=== PATIENT | male | born 1960 | race Caucasian/White ===

== ENCOUNTER 2017-05-27 20:13 | Emergency (ER) | payer BC ==
[2017-05-27] MEDS ORDERED: Lidocaine 1% with EPINEPHrine 1:100,000 20 ML MDV INFILT ONE (20:14)
--- NOTE | 2017-05-28 01:35 | ER ---
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 The knife slipped and caused a laceration to the palmar surface of his left wrist. This was on the radial side and the patient noted immediately a large amount of pulsatile bleeding. He applied direct pressure to the wound and came into the local emergency room. The bleeding seemed to have stopped by then, but there was some concern for possible radial artery injury based on his history, so he is transferred here for surgical evaluation. A bandage has been placed over the wrist, and during the time since shortly after his injury, there has been no further significant bleeding from the incision. I am seeing him now approximately 3 hours after the injury. The patient denies any numbness or tingling in his hand. He said the hand color is normal and does not feel cold to him. His past medical history shows that he is generally healthy. He does not have any known heart or vascular disease. He does have some arthritis and is anticipating knee replacement surgery. He has had some abdominal surgery but not had any upper extremity surgery in the past. He does not take blood thinners. PHYSICAL EXAMINATION: EXTREMITIES: Examination of the left wrist shows a 2 cm linear, slightly oblique laceration over the radial side of the palmar surface of the left wrist. Currently, there is no bleeding. There is no unusual swelling. Palpation of the wrist area reveals a strong radial pulse just proximal to the site of the laceration. I am not able to palpate a pulse distal to the laceration; however, with Doppler, strong arterial pulsation is noted both proximally and distally to the incision, and this is present even when the ulnar artery is compressed. Capillary refill in the fingers and thumb of his left hand is rapid and normal. Oxygen saturation taken on the finger of the left hand is the same and in fact slightly higher than that is taken on the finger of the uninjured hand. Discussion is carried out with the patient regarding management options. At this point, the radial artery does have a good pulse in it, there is no active bleeding, and since it has been several hours since the injury, I have recommended simple closure of the wound rather than exploration, which may open an cause injury to the radial artery. The rationale for this is discussed with the patient, and he concurred and agreed with this plan. The site is cleansed and anesthetized with Xylocaine with epinephrine. 4-0 Prolene sutures are placed to close the laceration. Again, no unusual bleeding was noted during this process or at any time while he was in the emergency room. Antibiotic ointment and a mild compression dressing are placed. The patient is also fitted with a Futuro splint and instructed to wear this for the next 3 days to try and minimize overuse of the wrist, further allowing any injury that may be present to heal without further bleeding. He is carefully instructed to come in or contact his physician if his hand should feel abnormal such as being numb or cold, or if he should have any excessive bleeding. He will follow up with his local provider in approximately a week for suture removal. Dx: Left Wrist Laceration /[id number] [address]
== END 2017-05-27 21:27 | disposition home or self-care (01) ==
LOC: FB.ED 20:13
DX: S61.512A Laceration without foreign body of left wrist, initial encounter (principal); W26.0XXA Contact with knife, initial encounter; Y92.79 Other farm location as the place of occurrence of the external cause; Y99.0 Civilian activity done for income or pay
CPT/HCPCS: 12001; 99282; A4217; 29125